=== PATIENT | female | born 1935 | race Caucasian/White ===

== ENCOUNTER 2016-11-20 13:27 | Inpatient (IN) | payer MEDICARE, OTHER ==
--- NOTE | ~2016-11-20 | HP ---
History And Physical [place] [id number] [facility] [address] NAME: AMELIA MA : 37 STATUS : ADM Kaya PAT#: [id number] AGE: 81 ADM/REG DATE : 11/20/16 MR#: [id number] REPORT SERV DATE: 11/20/16 DICTATED BY: LAURA MCGEE DATE: 11/20/16 REPORT STATUS : Draft TRANSCRIBED BY: MODL DATE: 11/20/16 DATE OF ADMISSION: 11/20/2016 IDENTIFYING DATA: An 81-year-old white female, whose PCP is Evelia Patel; GI, Dr. Liam Andersen. CHIEF COMPLAINT: Nausea, vomiting, and diarrhea. HISTORY OF PRESENT ILLNESS: This history of present illness is obtained by talking with the patient and her daughter at the bedside as well as the ER provider, [place], as well as reviewing [employer] [facility] [employer] and the current ER chart. The patient states she was placed on an antibiotic Augmentin for symptoms including a sore throat, swollen lymph nodes, bilateral earache, no fever. This was about 10 days ago. Her last dose was on 11/18/2016. That evening, she developed nausea, by midnight had terrible repetitive episodes of emesis. Initially, she states it was black in color. Then, it turned to other colors that were not red or black. She had many episodes of vomiting. She then developed diarrhea that she states was initially black, then that color turned to yellowish. Her nausea and vomiting have really not relented over the last couple of days. She gets crampy abdominal pain. Then, it is relieved by the diarrhea. It is diffuse, not localized. There has been no fever. She still had vomiting and nausea today, so came to the emergency room where she continued to have diarrhea, and she was found to have acute kidney injury and could not keep anything down, so we were asked to admit her to the hospital. She states that she has a 12-year-old great grandson that has some gastrointestinal illness going on right now. No other sick family members that she knows of. No travel outside the [place]. No unusual food or water sources. She does not have any contact with farm animals. She has a dog that belongs to a family member that comes around occasionally. On review of systems, she states her sore throat is gone. She has been weak for the last two days. She has some slight dysuria. She has a little bit of urinary hesitancy. She states that she has had leg and arm and hand cramps since this episode two days ago. She has had a headache whenever her allergies flare up. She denies fever, chest pain, shortness of breath, bright red blood per rectum, rash, peripheral edema, or falls. PAST MEDICAL HISTORY: She states even in the past she did not do well with penicillin because they "made her feel weird." She denies any history of diabetes, asthma, myocardial infarction, congestive heart failure, stroke, seizure, peptic ulcer, liver disease, thyroid disease, cancer, or sleep apnea. She has had previous chronic gastritis on a biopsy in 06/2016. She has had a history of gastroesophageal reflux disease. She states her reflux is not bothering her in recent months. She has a history of hypertension, some early dementia, previous kidney stones that she passed spontaneously, history of a previous DVT. She has allergic rhinitis. History And Physical [address] [address] NAME: AMELIA MA : 37 STATUS : ADM Kaya PAT#: [id number] AGE: 81 ADM/REG DATE : 11/20/16 MR#: [id number] REPORT SERV DATE: 11/20/16 DICTATED BY: LAURA MCGEE DATE: 11/20/16 REPORT STATUS : Draft TRANSCRIBED BY: JOSE DATE: 11/20/16 HOME MEDICATIONS: Lipitor 10 mg at bedtime, Celexa 40 mg daily, hydrochlorothiazide 12.5 mg daily, Cozaar 100 mg daily, metoprolol 50 mg twice a day, Singulair 10 mg daily, omeprazole 40 mg daily, Zantac 150 mg at bedtime, and Restoril 15 mg at bedtime. PAST SURGICAL HISTORY: She has had a left total knee. She has had cervical spine surgery, cholecystectomy, hysterectomy, appendectomy, sinus surgery, and cataract removal. SOCIAL HISTORY: She has denied any tobacco or alcohol intake. She used to work in a sewing factory. She lives with her daughter who is at the bedside. She reportedly walks without any assistive device. FAMILY HISTORY: Mother had pancreatic cancer. Father with Parkinson disease in the past. Sibling sister had colon cancer. Brothers with kidney stones. DIAGNOSTIC DATA: CT scan of the abdomen and pelvis read today by the radiologist, this is a noncontrast study. It showed a lot of fluid filled colon to the level of the rectum consistent with a diarrhea illness. No wall thickening to suggest colitis. Small left kidney stone but nonobstructive. Sodium 138, potassium 3.2, chloride 108, CO2 is 20, calculated anion gap is 10, BUN is 28, creatinine 1.76, glucose 100, calcium 7.7. The CMP is otherwise normal. Lipase is 201. Lactic acid 1.0. White count is 7.2, hemoglobin 11, and platelets 245,000. Urinalysis today: Hazy appearance, specific gravity 1.016, protein 100, 12 hyaline casts. PHYSICAL EXAMINATION: VITAL SIGNS: Temp 99, pulse 80, respirations 18, blood pressure 119/80, and O2 saturation is 94% on room air. GENERAL: Well-developed, older female, who appears mildly sick but in no acute distress. HEENT: Head is atraumatic. Pupils are equal, round, and reactive to light. Extraocular motions are intact. No scleral icterus noted. Ears with hearing aids bilaterally. No inflammatory changes noted externally. Nose, noninflamed externally. Septum midline. Nares patent. Mouth dry, good gag. No redness of the throat, gums, or lips. She has upper and lower dentures. NECK: Supple. No lymph node or thyroid enlargement. The carotids have good pulses. No bruits. LUNGS: Clear. Good air flow. No wheezes, no rhonchi anterior and posteriorly. Normal respiratory effort. HEART: Regular rate and rhythm without murmur, gallop, click, or rub. ABDOMEN: Bowel sounds are very active and soft, nondistended, mildly tender diffusely to palpation. No rebound. No organomegaly. No bruits noted. EXTREMITIES: Warm, good pulses. No clubbing, no cyanosis, no edema. No actively inflamed skin. She has had Heberden's nodules but no actively inflamed joints. NEUROLOGICAL: She is hard of hearing but her cranial nerves 2 through 12 are grossly normal. Otherwise, she is alert. She is oriented to person, place, and circumstance. Her motor strength is 2/5 in her hands, 2/5 in her right thigh, 2/5 in her left thigh and left calf and right calf. No Babinski. No clonus noted. ASSESSMENT: History And Physical [address] [address] NAME: AMELIA MA : 37 STATUS : ADM Kaya PAT#: [id number] AGE: 81 ADM/REG DATE : 11/20/16 MR#: [id number] REPORT SERV DATE: 11/20/16 DICTATED BY: LAURA MCGEE DATE: 11/20/16 REPORT STATUS : Draft TRANSCRIBED BY: MODL DATE: 11/20/16 1. Acute kidney injury related to volume depletion. 2. Nausea, vomiting, diarrhea, probably due to an infectious acute gastroenteritis, less likely a medication side effect (stool has been submitted by the ER and is C. diff negative and negative for ova and parasites and 0-5 white cells were seen). 3. Proteinuria. 4. Hypokalemia due to medications and the problem above. 5. History of reflux and chronic gastritis. 6. History of hypertension. 7. History of senile dementia. 8. History of previous DVT. 9. History of allergic rhinitis. 10.Renal stones. PLAN: The patient will be in observation. Next, we will give her IV lactated Ringer's with potassium. We will check stool culture. We will give her p.r.n. medications for nausea. Check an EKG and troponin. We will hold her blood pressure medicine and diuretics at this time. RSG/MODL Laura Mcgee M.D. / [id number] CC: Praneeth Dumont Jr, MD [facility] [place] James Scott Manton, M.D.
--- NOTE | ~2016-11-20 | DS ---
Discharge Summary [facility] [address] [place]. [address] NAME: AMELIA MA : 37 STATUS : DIS IN PAT#: [id number] AGE: 81 ADM/REG DATE : 11/21/16 MR#: [id number] REPORT SERV DATE: 11/26/16 DICTATED BY: GORAN MENJIVAR DATE: 11/25/16 REPORT STATUS : Draft TRANSCRIBED BY: MODL DATE: 11/25/16 ADMISSION DATE: 11/21/2016 DISCHARGE DATE: 11/25/2016 PROCEDURES DONE: 1. 11/20/2016, CT abdomen and pelvis, fluid-filled colon to the level of the rectum consistent with underlying diarrheal illness. No wall thickening to suggest colitis. Sigmoid colonic diverticulosis without diverticulitis. Punctate nonobstructive left nephrolithiasis. No urethrolith. 2. Nausea, vomiting, and diarrhea. HISTORY OF HOSPITAL STAY: An 81-year-old white female with past medical history of hypertension, hyperlipidemia, GERD, presenting with nausea, vomiting, and diarrhea, unknown duration. The patient was admitted for further evaluation of her chief complaint. The patient had a significant diarrhea that caused positive orthostatics. More importantly, initial workup for her diarrhea was negative for C. diff, Cryptococcus, Giardia, and Shigella toxin. In addition, the patient was also noted to be occult positive, however, more likely this is secondary to the patient's extensive diarrhea. The patient's H and H have been stable. At the time of admission, the patient's H was 11.6. At the time of discharge, hemoglobin was 10.3. More importantly, the patient's daughter was also admitted with similar symptoms. The patient's daughter turned out positive for the rotavirus. The patient's orthostatics were corrected with IV fluids. In addition, the patient's p.o. intake has subsequently increased during the hospital stay and her diarrhea at this time has improved from liquid to almost oatmeal-like in consistency. In addition, the frequency has also decreased to almost no diarrhea within the past 24 hours. Furthermore, the patient did develop acute kidney injury secondary to dehydration from the diarrhea, nausea, and vomiting. The patient's initial creatinine was 1.58 and on discharge it has significantly improved to 0.87. At this time, the patient is doing much better. No signs of complaint. DISPOSITION: The patient is feeling fine, no complaint. ACTIVITIES: As tolerated. DIET: Regular. INSTRUCTIONS UPON DISCHARGE: The patient will follow up with primary care physician within one to two weeks' time. MEDICATIONS UPON DISCHARGE: 1. Lipitor 10 mg p.o. at bedtime. 2. Lopressor 50 mg p.o. b.i.d. 3. Prilosec 40 mg p.o. daily. 4. Cozaar 100 mg p.o. daily. 5. Hydrochlorothiazide 12.5 mg p.o. daily. 6. Celexa 40 mg p.o. daily. 7. Restoril 15 mg p.o. at bedtime. Discharge Summary [address] [address] NAME: AMELIA MA : 37 STATUS : [facility] [id number] AGE: 81 ADM/REG DATE : 11/21/16 MR#: [id number] REPORT SERV DATE: 11/26/16 DICTATED BY: GORAN MENJIVAR. DATE: 11/25/16 REPORT STATUS : Draft TRANSCRIBED BY: JOSE DATE: 11/25/16 8. Singulair 10 mg p.o. daily. 9. Zantac 150 mg p.o. daily. DIAGNOSES UPON DISCHARGE: 1. Nausea, vomiting, and diarrhea secondary to rotavirus. 2. Acute gastroenteritis secondary to rotavirus. 3. Acute kidney injury secondary to problem #1 and #2. 4. Hypertension. 5. History of dementia. 6. Positive orthostatic secondary to problem #1 and problem #2. 7. Gastroesophageal reflux disease. 8. Hyperlipidemia. FBFarida/ESVINL Goran Menjivar MD / [id number] CC: Neela Cordero D.O.
[~2016-11-20 13:27] MED LIST: CELEXA40 MG PO; COUMADIN3 MG PO; COZAAR100 MG PO; ENDOCET1 TAB PO; FISH-EPA1000 MG PO; HYDROCHLOROT12.5 MG PO; LIPITOR10 PO; LOP50 PO; MOBIC7.5 PO; NAP500 PO; NORCO1 TA1 PO; PCET PO; PRAV10 PO; PRILO PO; PRILOSEC40 MG PO; REST15 PO; SINGULAIR1 PO; SUPER B-100 OR; ULTRAM50 PO; V2 PO; VITAMIN B PO; X25 PO; ZANTAC150 MG PO
[2016-11-20 14:23] LABS: ASCORBIC ACID (UR NOT ORDER) NEG (NEG); BILIRUBIN, URINE NEGATIVE (NEG); ER URINALYSIS TAT 0 Hrs 14 Mins; KETONE, URINE NEGATIVE (NEG); LEUKOCYTE ESTERASE(NOT OR NEG (NEG); NITRITE (URINE) NEG (NEG); WBC (NOT ORDERED) (RFLEX) 5 (0-5)
[2016-11-20 16:23] LABS: BASOPHILS 0.1 %; BASOPHILS ABSOLUTE 0.01 10/3/uL (0.0-0.16); EOSINOPHILS 0 %; ER CBC TAT 0 Hrs 14 Mins; HEMATOCRIT 31.7 % (36.0-48.0); IMMATURE GRANULOCYTES 0.3 %; IMMATURE GRANULOCYTES ABSOLUTE 0.02 10/3/uL (0.0-0.11); LYMPHOCYTES 13.3 %; LYMPHOCYTES ABSOLUTE 0.96 10/3/uL (0.67-4.30); MEAN CORPUS HGB CONC 34.7 g/dL (32.0-36.0); MEAN CORPUSCULAR HEMOGLOB 30.8 pg (26.0-34.0); MEAN PLATELET VOLUME 9.4 fL (9.2-13.0); MONOCYTES 16.3 %; MONOCYTES ABSOLUTE 1.18 10/3/uL (0.21-1.20); NEUTROPHILS ABSOLUTE 5.05 10/3/uL (2.02-8.40); PLATELET COUNT 245 10/3/uL (150-400); RBC DISTRIBUTION WIDTH 13.3 % (12.0-16.0); RED CELL COUNT 3.57 10/6/uL (4.0-5.6); WHITE BLOOD CELLS 7.2 10/3/uL (4.5-10.5)
[2016-11-20 16:25] LABS: MANUAL DIFF NO %; MEAN CORPUSCULAR VOLUME 88.8 fL (80-100)
[2016-11-20 16:37] LABS: ALBUMIN 3.6 G/DL (3.5-5.0); BUN (BLOOD UREA NITROGEN) 28 MG/DL (6-23); CALCIUM, SERUM 7.7 MG/DL (8.5-10.4); CHLORIDE, SERUM 108 MMOL/L (96-112); CO2 (CARBON DIOXIDE) 20 MMOL/L (24-34); CREATININE 1.76 MG/DL (0.55-1.02); GFR AFRICAN AMERICAN 31 ML/MIN (>=60); GFR NON AFRICAN AMERICAN 27 ML/MIN (>=60); GLOBULIN 3.5 G/DL (2.5-4.1); GLUCOSE, SERUM 100 MG/DL (60-99); POTASSIUM, SERUM 3.2 MMOL/L (3.5-5.3); SGOT(AST) 22 U/L (5-40); SGPT(ALT) 17 U/L (5-65); SODIUM, SERUM 138 MMOL/L (135-148); TOTAL BILIRUBIN 0.4 MG/DL (0-1.2); TOTAL PROTEIN 7.1 G/DL (6.0-8.5)
[2016-11-20 16:38] LABS: ALKALINE PHOSPHATASE 51 U/L (45-117)
[2016-11-20] MEDS ORDERED: PRILOSEC40 MG PO (17:50)
[2016-11-20] MEDS ORDERED: LOP50 PO (17:50)
[2016-11-20] MEDS ORDERED: HCTZ12.5 PO (17:51)
[2016-11-20] MEDS ORDERED: CELEXA40 MG PO (17:51)
[2016-11-20] MEDS ORDERED: LIPITOR10 PO (17:51)
[2016-11-20] MEDS ORDERED: COZAAR100 MG PO (17:51)
[2016-11-20] MEDS ORDERED: SINGULAIR1 PO (17:52)
[2016-11-20] MEDS ORDERED: REST15 PO (17:52)
[2016-11-20] MEDS ORDERED: ZANTAC150 MG PO (17:55)
[2016-11-21 05:20] LABS: BASOPHILS 0.1 %; BASOPHILS ABSOLUTE 0.01 10/3/uL (0.0-0.16); EOSINOPHILS 0 %; HEMATOCRIT 33.8 % (36.0-48.0); HEMOGLOBIN 11.6 g/dL (12.0-16.0); IMMATURE GRANULOCYTES 0.1 %; IMMATURE GRANULOCYTES ABSOLUTE 0.01 10/3/uL (0.0-0.11); LYMPHOCYTES 24.2 %; LYMPHOCYTES ABSOLUTE 1.71 10/3/uL (0.67-4.30); MEAN CORPUS HGB CONC 34.3 g/dL (32.0-36.0); MEAN CORPUSCULAR HEMOGLOB 30.7 pg (26.0-34.0); MEAN CORPUSCULAR VOLUME 89.4 fL (80-100); MEAN PLATELET VOLUME 9.8 fL (9.2-13.0); MONOCYTES 15.9 %; MONOCYTES ABSOLUTE 1.12 10/3/uL (0.21-1.20); NEUTROPHILS 59.7 %; NEUTROPHILS ABSOLUTE 4.21 10/3/uL (2.02-8.40); PLATELET COUNT 267 10/3/uL (150-400); RBC DISTRIBUTION WIDTH 13.4 % (12.0-16.0); RED CELL COUNT 3.78 10/6/uL (4.0-5.6); WHITE BLOOD CELLS 7.1 10/3/uL (4.5-10.5)
[2016-11-21 05:21] LABS: MANUAL DIFF NO %
[2016-11-21 05:26] LABS: BUN (BLOOD UREA NITROGEN) 29 MG/DL (6-23); CALCIUM, SERUM 8.1 MG/DL (8.5-10.4); CHLORIDE, SERUM 107 MMOL/L (96-112); CO2 (CARBON DIOXIDE) 19 MMOL/L (24-34); CREATININE 1.58 MG/DL (0.55-1.02); GFR AFRICAN AMERICAN 35 ML/MIN (>=60); GFR NON AFRICAN AMERICAN 31 ML/MIN (>=60); GLUCOSE, SERUM 86 MG/DL (60-99); POTASSIUM, SERUM 3.5 MMOL/L (3.5-5.3); SODIUM, SERUM 139 MMOL/L (135-148)
[2016-11-22 04:39] LABS: BASOPHILS 0.4 %; BASOPHILS ABSOLUTE 0.02 10/3/uL (0.0-0.16); EOSINOPHILS 0 %; HEMATOCRIT 33.3 % (36.0-48.0); HEMOGLOBIN 11.5 g/dL (12.0-16.0); IMMATURE GRANULOCYTES 0.2 %; IMMATURE GRANULOCYTES ABSOLUTE 0.01 10/3/uL (0.0-0.11); LYMPHOCYTES 32.7 %; LYMPHOCYTES ABSOLUTE 1.86 10/3/uL (0.67-4.30); MEAN CORPUS HGB CONC 34.5 g/dL (32.0-36.0); MEAN CORPUSCULAR HEMOGLOB 30.8 pg (26.0-34.0); MEAN CORPUSCULAR VOLUME 89.3 fL (80-100); MEAN PLATELET VOLUME 9.8 fL (9.2-13.0); MONOCYTES 15.1 %; MONOCYTES ABSOLUTE 0.86 10/3/uL (0.21-1.20); NEUTROPHILS 51.6 %; NEUTROPHILS ABSOLUTE 2.94 10/3/uL (2.02-8.40); PLATELET COUNT 260 10/3/uL (150-400); RBC DISTRIBUTION WIDTH 13.3 % (12.0-16.0); RED CELL COUNT 3.73 10/6/uL (4.0-5.6); WHITE BLOOD CELLS 5.7 10/3/uL (4.5-10.5)
[2016-11-22 04:51] LABS: MANUAL DIFF NO %
[2016-11-22 05:01] LABS: A/G RATIO 0.9 (0.7-1.9); ALBUMIN 3.2 G/DL (3.5-5.0); ALKALINE PHOSPHATASE 51 U/L (45-117); CALCIUM, SERUM 7.9 MG/DL (8.5-10.4); CHLORIDE, SERUM 112 MMOL/L (96-112); CO2 (CARBON DIOXIDE) 18 MMOL/L (24-34); CREATININE 1.14 MG/DL (0.55-1.02); GFR AFRICAN AMERICAN 53 ML/MIN (>=60); GFR NON AFRICAN AMERICAN 45 ML/MIN (>=60); GLOBULIN 3.6 G/DL (2.5-4.1); GLUCOSE, SERUM 84 MG/DL (60-99); POTASSIUM, SERUM 3.9 MMOL/L (3.5-5.3); SGOT(AST) 22 U/L (5-40); SGPT(ALT) 17 U/L (5-65); SODIUM, SERUM 143 MMOL/L (135-148); TOTAL BILIRUBIN 0.5 MG/DL (0-1.2); TOTAL PROTEIN 6.8 G/DL (6.0-8.5)
[2016-11-22 05:08] LABS: BUN (BLOOD UREA NITROGEN) 21 MG/DL (6-23)
[2016-11-23 05:35] LABS: BASOPHILS 0.8 %; BASOPHILS ABSOLUTE 0.04 10/3/uL (0.0-0.16); EOSINOPHILS 0.4 %; EOSINOPHILS ABSOLUTE 0.02 10/3/uL (0.0-0.53); HEMATOCRIT 33.3 % (36.0-48.0); HEMOGLOBIN 11.5 g/dL (12.0-16.0); LYMPHOCYTES ABSOLUTE 2.39 10/3/uL (0.67-4.30); MEAN CORPUS HGB CONC 34.5 g/dL (32.0-36.0); MEAN CORPUSCULAR HEMOGLOB 30.7 pg (26.0-34.0); MEAN CORPUSCULAR VOLUME 88.8 fL (80-100); MEAN PLATELET VOLUME 9.7 fL (9.2-13.0); MONOCYTES 13.8 %; MONOCYTES ABSOLUTE 0.66 10/3/uL (0.21-1.20); NEUTROPHILS ABSOLUTE 1.67 10/3/uL (2.02-8.40); PLATELET COUNT 262 10/3/uL (150-400); RBC DISTRIBUTION WIDTH 13.3 % (12.0-16.0); RED CELL COUNT 3.75 10/6/uL (4.0-5.6); WHITE BLOOD CELLS 4.8 10/3/uL (4.5-10.5)
[2016-11-23 05:36] LABS: MANUAL DIFF NO %
[2016-11-23 05:57] LABS: ALBUMIN 3.2 G/DL (3.5-5.0); BUN (BLOOD UREA NITROGEN) 18 MG/DL (6-23); CALCIUM, SERUM 8.6 MG/DL (8.5-10.4); CHLORIDE, SERUM 112 MMOL/L (96-112); CO2 (CARBON DIOXIDE) 17 MMOL/L (24-34); GFR AFRICAN AMERICAN 55 ML/MIN (>=60); GFR NON AFRICAN AMERICAN 47 ML/MIN (>=60); GLUCOSE, SERUM 97 MG/DL (60-99); PHOSPHORUS, SERUM 2.3 MG/DL (2.5-4.5); POTASSIUM, SERUM 3.8 MMOL/L (3.5-5.3); SODIUM, SERUM 141 MMOL/L (135-148)
[2016-11-24 05:36] LABS: ALBUMIN 2.9 G/DL (3.5-5.0); BUN (BLOOD UREA NITROGEN) 14 MG/DL (6-23); CALCIUM, SERUM 7.7 MG/DL (8.5-10.4); CHLORIDE, SERUM 113 MMOL/L (96-112); CO2 (CARBON DIOXIDE) 18 MMOL/L (24-34); CREATININE 0.86 MG/DL (0.55-1.02); GFR AFRICAN AMERICAN 74 ML/MIN (>=60); GFR NON AFRICAN AMERICAN 64 ML/MIN (>=60); GLUCOSE, SERUM 87 MG/DL (60-99); POTASSIUM, SERUM 3.7 MMOL/L (3.5-5.3); SODIUM, SERUM 141 MMOL/L (135-148)
[2016-11-25 04:30] LABS: HEMATOCRIT 29.7 % (36.0-48.0); HEMOGLOBIN 10.3 g/dL (12.0-16.0); MANUAL DIFF YES %; MEAN CORPUS HGB CONC 34.7 g/dL (32.0-36.0); MEAN CORPUSCULAR HEMOGLOB 30.5 pg (26.0-34.0); MEAN CORPUSCULAR VOLUME 87.9 fL (80-100); MEAN PLATELET VOLUME 9.4 fL (9.2-13.0); PLATELET COUNT 220 10/3/uL (150-400); RED CELL COUNT 3.38 10/6/uL (4.0-5.6); WHITE BLOOD CELLS 6.8 10/3/uL (4.5-10.5)
[2016-11-25 04:55] LABS: ALBUMIN 2.9 G/DL (3.5-5.0); BUN (BLOOD UREA NITROGEN) 11 MG/DL (6-23); CALCIUM, SERUM 7.9 MG/DL (8.5-10.4); CHLORIDE, SERUM 114 MMOL/L (96-112); CO2 (CARBON DIOXIDE) 20 MMOL/L (24-34); CREATININE 0.87 MG/DL (0.55-1.02); GFR AFRICAN AMERICAN 73 ML/MIN (>=60); GFR NON AFRICAN AMERICAN 63 ML/MIN (>=60); GLUCOSE, SERUM 87 MG/DL (60-99); PHOSPHORUS, SERUM 2.2 MG/DL (2.5-4.5); POTASSIUM, SERUM 4.1 MMOL/L (3.5-5.3); SODIUM, SERUM 143 MMOL/L (135-148)
[2016-11-25 05:13] LABS: BAND NEUTROPHILS 2 %; LYMPHOCYTES 37 %; LYMPHOCYTES ABSOLUTE (CALC) 2.52 10/3/uL (0.67-4.30); MONOCYTES 3 %; NEUTROPHILS ABSOLUTE (CALC) 4.08 10/3/uL (2.02-8.40); PLATELET ESTIMATE ADQ (ADEQUATE); RBC MORPHOLOGY NORM (NORMAL); SEGMENTED NEUTROPHIL (0) 58 %; TOTAL NUCLEATED CELLS 100
== END 2016-11-25 13:04 | disposition home or self-care (01) | DRG 683 ==
LOC: ER 13:27 → CDU1 18:22
PROVIDERS: Hospitalist; Nurse Practitioner
DX: N17.9 Acute kidney failure, unspecified (principal); A08.0 Rotaviral enteritis; E86.0 Dehydration; G30.9 Alzheimer's disease, unspecified; F03.90 Unspecified dementia, unspecified severity, without behavioral disturbance, psychotic disturbance, mood disturbance, and anxiety; I95.1 Orthostatic hypotension; I10 Essential (primary) hypertension; K21.9 Gastro-esophageal reflux disease without esophagitis; E78.5 Hyperlipidemia, unspecified; F02.80 Dementia in other diseases classified elsewhere, unspecified severity, without behavioral disturbance, psychotic disturbance, mood disturbance, and anxiety; Z86.718 Personal history of other venous thrombosis and embolism; Z96.652 Presence of left artificial knee joint
CPT/HCPCS: 74176; 80048; 80053; 80069; 81001; 82272; 83605; 83690; 83735; 84100; 84484; 85025; 87045; 87046; 87046-59; 87328; 87329; 87493; 87493-59; 87899; 87899-59; 89055; 93005; 96374; 96375; 97161-GP; 97164-GP; 99285; A9270-GY; G8978-CH-GP; G8979-CH-GP; G8980-CH-GP; J0360; J2405; J3480

== ENCOUNTER 2017-04-16 16:21 | Emergency (ER) | payer MEDICARE, OTHER ==
[~2017-04-16 16:21] MED LIST changes: +HCTZ12.5 PO
[2017-04-16 18:09] LABS: BASOPHILS 0.5 %; BASOPHILS ABSOLUTE 0.03 10/3/uL (0.0-0.16); EOSINOPHILS 2.9 %; EOSINOPHILS ABSOLUTE 0.19 10/3/uL (0.0-0.53); HEMATOCRIT 29.5 % (36.0-48.0); HEMOGLOBIN 9.9 g/dL (12.0-16.0); IMMATURE GRANULOCYTES 0.2 %; IMMATURE GRANULOCYTES ABSOLUTE 0.01 10/3/uL (0.0-0.11); LYMPHOCYTES 41.6 %; LYMPHOCYTES ABSOLUTE 2.68 10/3/uL (0.67-4.30); MEAN CORPUS HGB CONC 33.6 g/dL (32.0-36.0); MEAN CORPUSCULAR HEMOGLOB 30.6 pg (26.0-34.0); MEAN PLATELET VOLUME 9.1 fL (9.2-13.0); MONOCYTES 12.6 %; MONOCYTES ABSOLUTE 0.81 10/3/uL (0.21-1.20); NEUTROPHILS 42.2 %; NEUTROPHILS ABSOLUTE 2.73 10/3/uL (2.02-8.40); PLATELET COUNT 271 10/3/uL (150-400); RBC DISTRIBUTION WIDTH 13.1 % (12.0-16.0); RED CELL COUNT 3.24 10/6/uL (4.0-5.6); WHITE BLOOD CELLS 6.5 10/3/uL (4.5-10.5)
[2017-04-16 18:11] LABS: MANUAL DIFF NO %
[2017-04-16 18:18] LABS: PARTIAL THROMBO TIME 25.8 SEC (22.5-37.2); PROTIME (NOT ORD) 13.1 SEC (12.0-14.5)
[2017-04-16 18:26] LABS: CALCIUM, SERUM 8.4 MG/DL (8.5-10.4); CHEST PAIN PROFILE TAT 0 Hrs 21 Mins; CHLORIDE, SERUM 106 MMOL/L (96-112); CREATININE 1.07 MG/DL (0.55-1.02); GFR AFRICAN AMERICAN 56 ML/MIN (>=60); GFR NON AFRICAN AMERICAN 49 ML/MIN (>=60); POTASSIUM, SERUM 3.8 MMOL/L (3.5-5.3); SODIUM, SERUM 140 MMOL/L (135-148); TROPONIN I <0.02 NG/ML (<0.05)
[2017-04-16 18:27] LABS: BUN (BLOOD UREA NITROGEN) 16 MG/DL (6-23); CO2 (CARBON DIOXIDE) 29 MMOL/L (24-34); GLUCOSE, SERUM 108 MG/DL (60-99)
[2017-04-16 18:46] LABS: ASCORBIC ACID (UR NOT ORDER) NEG (NEG); BILIRUBIN, URINE NEGATIVE (NEG); KETONE, URINE NEGATIVE (NEG); LEUKOCYTE ESTERASE(NOT OR NEG (NEG); NITRITE (URINE) NEG (NEG); WBC (NOT ORDERED) (RFLEX) < 1 (0-5)
[2017-04-16 18:48] LABS: ER URINALYSIS TAT 0 Hrs 41 Mins
== END 2017-04-16 19:20 | disposition home or self-care (01) ==
LOC: ER 16:21
PROVIDERS: Emergency Medicine
DX: S93.402A Sprain of unspecified ligament of left ankle, initial encounter (principal); S50.11XA Contusion of right forearm, initial encounter; S00.33XA Contusion of nose, initial encounter; I10 Essential (primary) hypertension; K21.9 Gastro-esophageal reflux disease without esophagitis; Z86.73 Personal history of transient ischemic attack (TIA), and cerebral infarction without residual deficits; Z88.0 Allergy status to penicillin; Z79.899 Other long term (current) drug therapy; W19.XXXA Unspecified fall, initial encounter
CPT/HCPCS: 70450; 73610-LT; 80048; 81001; 83735; 84484; 85025; 85610; 85730; 99285